=== PATIENT | male | born 1950 | race Caucasian/White ===

== ENCOUNTER 2023-09-30 21:58 | Inpatient (IN) | payer MEDICARE ==
[~2023-09-30] VITALS: Ht 170.2 cm; Wt 77.1 kg
[2023-09-30 22:22] LABS: BASOPHILS ABSOLUTE AUTO 0.02 K/mm3 (0.00-0.23); BASOPHILS PERCENT AUTO 0 % (0-2); EOSINOPHILS ABSOLUTE AUTO 0.02 K/mm3 (0.00-0.68); EOSINOPHILS PERCENT AUTO 0 % (0-6); Hematocrit 37.9 % (37.0-53.0); Hemoglobin 12.6 g/dL (13.5-17.5); IMMATURE GRAN ABSOLUTE AUTO 0.01 K/mm3 (0.00-0.10); IMMATURE GRAN PERCENT AUTO 0 % (0-1); LYMPHOCYTES ABSOLUTE AUTO 0.96 K/mm3 (0.84-5.20); LYMPHOCYTES PERCENT AUTO 17 % (21-46); MONOCYTES ABSOLUTE AUTO 0.54 K/mm3 (0.16-1.47); MONOCYTES PERCENT AUTO 10 % (4-13); Mean Corpuscular HGB 29.6 pg (26.0-34.0); Mean Corpuscular HGB Conc 33.2 g/dL (31.5-36.5); Mean Corpuscular Volume 89 fL (80-100); Mean Platelet Volume 9.4 fL (9.1-12.4); NEUTROPHILS ABSOLUTE AUTO 4.05 K/mm3 (1.96-9.15); NEUTROPHILS PERCENT AUTO 72 % (41-73); Platelet Count 173 K/mm3 (150-400); RDW Coefficient Variation 12.8 % (11.7-14.2); RDW Standard Deviation 41.9 fL (35.1-46.3); Red Blood Cell Count 4.26 M/mm3 (4.30-5.90)
[2023-09-30 22:41] LABS: International Normalized Ratio 1.07; Prothrombin Time Results 11.2 Sec (9.7-11.5)
[2023-09-30 22:51] LABS: Albumin, Blood 4.3 g/dL (3.4-5.0); Albumin/Globulin Ratio 1.2 (0.8-1.8); Bilirubin, Total 1.3 mg/dL (0.1-1.0); Bun/Creatinine Ratio 18.6 (12.0-20.0); Creatinine, Blood 0.91 mg/dL (0.60-1.20); Globulin, Blood 3.6 g/dL (2.2-4.0); Potassium, Blood 3.6 mmol/L (3.5-5.5); Total Protein, Blood 7.9 g/dL (6.4-8.2)
[2023-09-30 22:56] LABS: Source, Urine Clean Catch
[2023-09-30 23:00] LABS: Bilirubin, Urine Neg (Neg); Blood, Urine Neg (Neg); Glucose Qualitative, Urine Neg (Neg); Ketones, Urine Neg (Neg); Leukocyte Esterase, Urine Neg (Neg); Nitrite, Urine Neg (Neg); Protein, Urine Neg (Neg); Urobilinogen, Urine NORM (Normal)
[2023-09-30 23:05] LABS: Appearance, Urine Clear (Clear); Color, Urine Pale Yellow (P-Yellow)
[2023-10-01 02:38] VITALS: BP 139/78
[2023-10-01 05:09] VITALS: BP 131/73
--- NOTE | 2023-10-01 05:31 | NUR ---
ELDER UF, PT RESTING IN BED, PT ON PHONE. PT HAS EXSPESIVE APHASIA. PT ABLE TO WRITE SOME OF THE MEDS HE WAS NEEDING BUT STILL SOMEWHAT DIFFICULT FOR PT TO COMUNICATE. DID BED SIDE SWALLOW. PT ABLE TO SWALLOW WWATER WITH OUT SEEMING TO CHOKE. ABLE TO EAT AND SWALLOW CRACKER AND THEN SWALLOW WATER WITH OUT AND OBVIOUS DIFFICULTY. PT ABOE TO TAKE HIS PAIN MED WITH SOME WATER WHOLE WITH OUT ANY OBVIOUS PROBLEMS. CALL LIGHT IN REACH PT ABLE TO STAND AND WALK WITH 1 PERSON ASSIST.
[2023-10-01 05:48] LABS: BASOPHILS ABSOLUTE AUTO 0.02 K/mm3 (0.00-0.23); BASOPHILS PERCENT AUTO 0 % (0-2); EOSINOPHILS ABSOLUTE AUTO 0.03 K/mm3 (0.00-0.68); EOSINOPHILS PERCENT AUTO 1 % (0-6); Hematocrit 34.8 % (37.0-53.0); Hemoglobin 11.7 g/dL (13.5-17.5); IMMATURE GRAN PERCENT AUTO 0 % (0-1); LYMPHOCYTES ABSOLUTE AUTO 1.06 K/mm3 (0.84-5.20); LYMPHOCYTES PERCENT AUTO 22 % (21-46); MONOCYTES ABSOLUTE AUTO 0.49 K/mm3 (0.16-1.47); MONOCYTES PERCENT AUTO 10 % (4-13); Mean Corpuscular HGB 29.7 pg (26.0-34.0); Mean Corpuscular HGB Conc 33.6 g/dL (31.5-36.5); Mean Corpuscular Volume 88 fL (80-100); Mean Platelet Volume 9.3 fL (9.1-12.4); NEUTROPHILS ABSOLUTE AUTO 3.23 K/mm3 (1.96-9.15); NEUTROPHILS PERCENT AUTO 67 % (41-73); Platelet Count 163 K/mm3 (150-400); RDW Coefficient Variation 12.7 % (11.7-14.2); RDW Standard Deviation 41.4 fL (35.1-46.3); Red Blood Cell Count 3.94 M/mm3 (4.30-5.90); White Blood Cell Count 4.83 K/mm3 (4.00-11.30)
[2023-10-01 06:24] LABS: Albumin, Blood 3.8 g/dL (3.4-5.0); Albumin/Globulin Ratio 1.1 (0.8-1.8); Bilirubin, Total 1.4 mg/dL (0.1-1.0); Bun/Creatinine Ratio 15.6 (12.0-20.0); Creatinine, Blood 0.83 mg/dL (0.60-1.20); Globulin, Blood 3.4 g/dL (2.2-4.0); Total Protein, Blood 7.2 g/dL (6.4-8.2)
[2023-10-01 07:40] VITALS: BP 129/69
--- NOTE | 2023-10-01 11:03 | NUR ---
CALLED [facility] ON [address] FOR PT MED REC @1100
[2023-10-01 15:26] VITALS: BP 119/73
--- NOTE | 2023-10-01 17:12 | NUR ---
SHIFT SUMMARY: PT A&O X4. PLEASANT AND COOPERATIVE WITH ALL CARE. PT HAD SPEECH EVAL THIS AM. PT PLACED ON REGULAR DIET AND ABLE TO TAKE MEDICATIONS WHOLE WITH WATER W/O COMPLAINTS. PT STILL HAVING SOME EXPRESSIVE APHASIA BUT APPEARS TO BE BETTER THIS EVENING. PT SB ASSIST IN ROOM D/T FLUIDS BUT INDEPENDENT WHEN NOT HOOKED TO FLUIDS. LR INFUSING @75/HR. TELE IN PLACE RUNNING SINUS GILBERT. SHOWERED INDEPENDENTLY. PAIN MEDICATION INCREASED TO HOME DOSE. CALL LIGHT IN REACH. BED IN LOWEST POSITION.
[2023-10-01 19:51] VITALS: BP 131/71
[2023-10-02 02:50] VITALS: BP 142/75
--- NOTE | 2023-10-02 05:48 | NUR ---
Rn summary: Patient is alert and oriented. Neuro check is good except for patient has word search and very soft horse sounding voice. Strength is strong and equal, pupils equal and reactive to light. Patient suffers from chronic pain, medicated x2 with oxycodone 15mg with good relief. States did rest on and off. Using urinal. No other needs expressed. Call light in reach. Will continue to monitor.
[2023-10-02 08:11] VITALS: BP 133/74
[2023-10-02] MEDS ORDERED: ASPI81CH PO (11:37)
[2023-10-02] MEDS ORDERED: GABA300 PO (11:37)
[2023-10-02] MEDS ORDERED: ATOR40TA PO (11:37)
[2023-10-02] MEDS ORDERED: OXYC15ER PO (11:38)
--- NOTE | 2023-10-02 13:19 | NUR ---
DISCHARGE SUMMARY PT DISCHARGED TO HOME. PT EDUCATED ON ALL DISCHARGE INTRUCTIONS INCLUDING FOLLOWING UP WITH PCP, TAKING MEDICATIONS PRESCRIBED AND RETURNING TO HOSPITAL FOR WORSENING SYMPTOMS. ALL QUESTIONS ANSWERED. PT AGREES TO ESTABLISH PCP. GIVEN NEW PATIENT PACKET FOR [employer] IN CASE [employer] ISNT IN NETWORK FOR HIS INSURANCE. IV DC'D AND BELONGINGS RETURNED.
== END 2023-10-02 12:42 | disposition home or self-care (01) | DRG 65 ==
LOC: ER 21:58 → MEDS 21:59
PROVIDERS: Emergency Medicine; ADMIT Student in an Organized Health Care Education/Training Program
DX: I63.9 Cerebral infarction, unspecified (principal); F11.20 Opioid dependence, uncomplicated; R47.01 Aphasia; G89.4 Chronic pain syndrome; H53.8 Other visual disturbances; M54.9 Dorsalgia, unspecified; Z98.1 Arthrodesis status
CPT/HCPCS: 36415; 70450; 70496; 70498; 71045; 80053; 81003; 85025; 85610; 85730; 92523; 92610; 93005; 93010; 93306; 97110; 97116; 97161; 99285-25; A9270; G0378; J7120; Q9967

== ENCOUNTER 2024-05-17 05:42 | Day surgery (SDC) | payer MEDICARE ==
[~2024-05-17 05:42] MED LIST: ASPI81CH PO; ATOR40TA PO; GABA300 PO; OXYC15ER PO
[2024-05-17] MEDS ORDERED: BUPRENORPHINE HC2 MG TD (06:28)
[2024-05-17] MEDS ORDERED: FLONASE SENSIM5.9 M1 NS (06:30)
[2024-05-17] MEDS ORDERED: MOVANTIK25 M1 PO (06:30)
[2024-05-17] MEDS ORDERED: TRAZ50 PO (06:31)
[2024-05-17] MEDS ORDERED: Benzocaine Oral Spray 0.5ML UD ONE (06:31)
[2024-05-17] MEDS ORDERED: NS 1,000 ML IV ONE (06:46)
[2024-05-17 06:56] VITALS: BP 161/92
--- NOTE | 2024-05-17 07:23 | NUR ---
ASSUMED CARE FROM ANESTHESIA. PT AWAKE AND VERBALIZING WELL.
[2024-05-17 07:24] VITALS: BP 117/60
[2024-05-17 07:27] VITALS: BP 121/68
[2024-05-17 07:33] VITALS: BP 125/72
[2024-05-17 07:39] VITALS: BP 140/75
[2024-05-17 07:42] VITALS: BP 138/73
--- NOTE | 2024-05-17 07:47 | NUR ---
PT AND DAUGHTER VERBALIZED UNDERSTANDING OF WRITTEN AND VERBAL D/C INST. PT AMB IN RM /S DIFFICULTY. IV REMOVED. PT WILL BE TAKEN OUT OF THE HRT CENTER VIA W/C.
[2024-05-17] MEDS ORDERED: Propofol 10mg/ml 20 ml Vial (Procedural) IV ONE (17:42)
== END 2024-05-17 23:14 | disposition home or self-care (01) ==
LOC: MHTC 05:42
DX: I69.922 Dysarthria following unspecified cerebrovascular disease (principal); Q21.12 Patent foramen ovale; E78.5 Hyperlipidemia, unspecified; Z88.1 Allergy status to other antibiotic agents; Z79.899 Other long term (current) drug therapy
CPT/HCPCS: 93312; 93325; A9270; J2704; J7030